=== PATIENT | female | born 1940 | race Caucasian/White ===

== ENCOUNTER 2022-03-01 12:35 | Outpatient (CLI) | payer OTHER, SELFPAY ==
[2022-03-01 21:48] LABS: Chloride* 101 mmol/L (96-114); Potassium* 4.3 mmol/L (3.6-5.1); Sodium* 139 mmol/L (135-149)
[2022-03-01 21:51] LABS: Blood Urea Nitrogen* 23 mg/dL (7-30); Carbon Dioxide* 31 mmol/L (20-32); Cholesterol* 111 mg/dL (90-199); Creatinine* 0.9 mg/dL (0.5-1.5); Estimated Glomerular Filt Rate 64 ml/min
[2022-03-01 21:52] LABS: HDL Cholesterol* 33 mg/dL (>=50); LDL Cholesterol Calculated 53 mg/dL (<100); Triglycerides* 123 mg/dL (40-149)
[2022-03-01 22:00] LABS: Creatinine Urine 125.7 mg/dL
[2022-03-01 22:04] LABS: Microalbumin Creatinine Ratio 0 mg/g (0-30); Microalbumin Urine 1 mg/dL
[2022-03-01 22:07] LABS: Glucose* 121 mg/dL (60-115)
[2022-03-01 22:17] LABS: Thyroid Stimulating Hormone* 0.694 uIU/mL (0.270-4.20)
== END 2022-03-01 12:36 | disposition home or self-care (01) ==
PROVIDERS: PCP Emergency Medicine; Visit Provider Emergency Medicine
DX: C73 Malignant neoplasm of thyroid gland (principal); E11.9 Type 2 diabetes mellitus without complications; I10 Essential (primary) hypertension; E78.5 Hyperlipidemia, unspecified; E03.9 Hypothyroidism, unspecified
CPT/HCPCS: 80048; 80061; 82043; 82570; 84443

== ENCOUNTER 2022-05-27 09:10 | Outpatient (CLI) | payer OTHER, SELFPAY | END 2022-05-27 09:11 | disposition home or self-care (01) | LOC: LKVREF 09:10 | PROVIDERS: PCP Emergency Medicine; Visit Provider Emergency Medicine | DX: C73 Malignant neoplasm of thyroid gland (principal) | CPT/HCPCS: 84443 ==

== ENCOUNTER 2022-08-10 14:12 | Outpatient (CLI) | payer OTHER, SELFPAY | END 2022-08-10 14:13 | disposition home or self-care (01) | PROVIDERS: PCP Emergency Medicine; Visit Provider Emergency Medicine | DX: R19.5 Other fecal abnormalities (principal) | CPT/HCPCS: 83516 ==

== ENCOUNTER 2022-09-13 12:07 | Outpatient (CLI) | payer OTHER, SELFPAY | END 2022-09-13 12:08 | disposition home or self-care (01) | LOC: LKVREF 12:08 | PROVIDERS: PCP Emergency Medicine; Visit Provider Emergency Medicine | DX: K62.5 Hemorrhage of anus and rectum (principal) | CPT/HCPCS: 82728 ==

== ENCOUNTER 2023-07-03 10:20 | Outpatient (CLI) | payer OTHER, SELFPAY | END 2023-07-03 10:21 | disposition home or self-care (01) | PROVIDERS: PCP Emergency Medicine; Referring Provider Emergency Medicine; Visit Provider Emergency Medicine | DX: E11.9 Type 2 diabetes mellitus without complications (principal); E03.9 Hypothyroidism, unspecified; D64.9 Anemia, unspecified; E78.5 Hyperlipidemia, unspecified; I10 Essential (primary) hypertension | CPT/HCPCS: 80053; 80061; 82043; 82570; 82728; 84443 ==

== ENCOUNTER 2024-01-11 09:12 | Outpatient (CLI) | payer OTHER, SELFPAY ==
--- OUTSIDE RECORDS SUMMARY | 2024-01-14 09:23 | XMS_ITS | Clinical Summary ---
Author Organization [facility] Address [address] [place] [address]. [place] [address] Care Team Providers Care Sheeter Helper Name Role Phone Derek Karla Jr Primary Care Provider [phone] Allergies Active Allergy Reactions Criticality Noted Date [...] mouth Active calcium carbonate (OS-GIOVANA 500 MG [place]. [place]) 500 MG tablet Take 1 tablet [...] 78 kg (172 lb) 07/24/2017 10:00 AM INTEGRATION DIRECTOR Height 161.9 cm (5' 3.74) 07/24/2017 10:[address] Body Mass Index 29.77 07/24/2017 10:00 AM INTEGRATION DIRECTOR Plan of Treatment Not on file Care Teams Sheeter Helper Relationship Specialty Start Date End Date Karla Reed [facility] [address] [place] [address] PCP - General Nurse Practitioner 09/25/15
--- OUTSIDE RECORDS SUMMARY | 2024-01-14 09:23 | XMS_ITS | Referral Summary ---
Author Organization [facility] Address [address] [place] [address]. [place] [address] Care Team Providers Care Mobile Designer Name Role Phone Derek Karla Norris Primary Care Provider [phone] Allergies Active Allergy Reactions Criticality Noted Date [...] mouth Active calcium carbonate (OS-GIOVANA 500 MG [place]. [place]) 500 MG tablet Take 1 tablet [...] 78 kg (172 lb) 07/24/2017 10:00 AM MATERIALS ASSOCIATE Height 161.9 cm (5' 3.74) 07/24/2017 10:[address] Body Mass Index 29.77 07/24/2017 10:00 AM MATERIALS ASSOCIATE Plan of Treatment Not on file Care Teams Mobile Designer Relationship Specialty Start Date End Date Karla Reed [facility] [address] [place] [address] PCP - General Nurse Practitioner 09/25/15
--- OUTSIDE RECORDS SUMMARY | 2024-01-14 09:23 | XMS_ITS | Clinical Summary ---
Author Organization [facility] Address [place], [place] [address] Care Team Providers Care Radio Frequency Technician Name Role Phone Rocío Rubio MD Primary Care Provider [phone] Allergies Active Allergy Reactions Criticality Noted Date [...] history exists Influenza for age 65+ 02/25/2024 Advance Directives Documents on File Type Date Recorded Patient Vehicle Service Attendant Expl anation Power of Cleaner Operator 04/28/2017 3:47 PM Healthcare Directive 04/27/2017 12:00 AM * Full Code (Latest Code Status on File) Date Activated Date Inactivated Comments 04/28/2017 12:26 AM 04/29/2017 4:20 PM Question Answer Comments Code Status Discussion: Discussed Care Teams Radio Frequency Technician Relationship Specialty Start Date End Date Rocío Rubio MD [address] [place] [address] PCP - General 04/19/19
--- OUTSIDE RECORDS SUMMARY | 2024-01-14 09:23 | XMS_ITS | Clinical Summary ---
Author Organization [facility] Address [address] [place] [address] Care Team Providers Care Region Manager Name Role Phone Unavailable Primary Care Provider Unavailabl e Source Comments You are receiving this document as you are listed as the primary care provider,follow-up provider, or the patient has been referred to you for consultation.This is in compliance with the Medicare andMedicaid EHR Incentive Program,which states Providers who transition their patient to another setting of careor provider of care or refers their patient to another provider of care shouldprovide summary care record for each transition of care or referral. [facility] Allergies No known active allergies Medications Medication Sig Dispensed Refills Start Date End Date Status spironolactone-hydroch lorothiazide (ALDACTAZIDE) 25-25 MG tablet Take 1 Tablet by mouth daily. 07/11/2022 Active rosuvastatin (CRESTOR) 20 MG tablet Take 1 Tablet (20 mg) by mouth daily. 08/02/2022 Active metoprolol tartrate (LOPRESSOR) 25 MG tablet Take 0.5 Tablets (12.5 mg) by mouth two times a day. 08/02/2022 Active metFORMIN (GLUCOPHAGE) 1000 MG tablet Take 1 Tablet (1,000 mg) by mouth two times a day. 08/02/2022 Active losartan (COZAAR) 100 MG tablet Take 1 Tablet (100 mg) by mouth daily. 08/02/2022 Active Felodipine (PLENDIL) 10 MG tablet Take 1 Tablet (10 mg) by mouth daily. Active aspirin EC 81 MG enteric coated tablet Take 1 Tablet (81 mg) by mouth daily. Active levothyroxine (SYNTHROID) 112 MCG tablet Take 1 Tablet (112 mcg) by mouth daily. 08/11/2022 Active calcium carbonate-vitamin D 600-10 MG-MCG tablet Take 3 Tablets by mouth two times a day. Active Social History Tobacco Use Types Packs/Day Years Used Date Smoking Tobacco: Never Smokeless Tobacco: Never Tobacco Cessation:Counseling Given: Not Answered Alcohol Use Standard Drinks/Week Comments Not Currently 0 (1 standard drink = 0.6 oz pur e alcohol) Sex and Gender Information Value Date Recorded Sex Assigned at Not on file Gender Identity Not on file Sexual Orientation Not on file Last Filed Vital Signs Vital Sign Reading Time Taken Comments Blood Pressure - - Pulse - - Temperature - - Respiratory Rate - - Oxygen Saturation - - Inhaled Oxygen Concentration - - Weight 70.6 kg (155 lb 9.6 oz) 09/29/2022 2:00 P M CDT Height 162.6 cm (5' 4) 09/29/2022 2:00 PM CDT Body Mass Index 26.71 09/29/2022 2:00 PM CDT Plan of Treatment Health Maintenance Due Date Last Done Comments Medicare Welcome Visit 1940 Dexa 2004 COVID-19 Vaccine ( season) 2023 05/12/2022, 03/22/2021, 08/07/2020, Additional history exists Influenza (#1) 2024 05/12/2022, 05/26, 04/06/2020, Additional history exists DTaP/Tdap/Td (2 - Tdap) 12/11/2028 12/11/2018 Zoster/Shingles Completed 03/12/2019, 12/11/2018 Pneumococcal 65+ Yrs Completed 01/14/2020, 08/09/19 17 HepA Aged Out No longer eligi ble based on patient's age to complete this topic HepB Aged Out No longer eligi ble based on patient's age to complete this topic Hib Aged Out No longer eligi ble based on patient's age to complete this topic IPV (Polio) Aged Out No longer eligi ble based on patient's age to complete this topic MCV4 Aged Out No longer eligi ble based on patient's age to complete this topic
== END 2024-01-11 09:13 | disposition home or self-care (01) ==
LOC: NFLDREF 01-14 09:21
PROVIDERS: PCP Emergency Medicine; Referring Provider Emergency Medicine; Visit Provider Emergency Medicine
DX: I95.1 Orthostatic hypotension (principal)
CPT/HCPCS: 87086; 87186

== ENCOUNTER 2024-01-11 09:37 | Emergency (ER) | payer OTHER, SELFPAY ==
[2024-01-11 09:40] VITALS: BP 119/73; PULSE 85; RESP 14; TEMP 35.9; O2SAT 97
[2024-01-11 10:07] VITALS: BP 104/65; BP 78/66; BP 99/57; PULSE 61; PULSE 77; PULSE 84
--- NOTE | 2024-01-11 10:09 | ED.GENADULT ---
HPI - General Adult General Date Seen: 01/11/24 Chief complaint: Unspecified Complaint, Adult Stated complaint: Dehydrated Time Seen by Provider: 01/11/24 09:38 Source: patient Mode of arrival: ambulatory Limitations: no limitations History of Present Illness HPI narrative: Patient is an 83-year-old female with a history of diabetes, coronary artery disease, hypertension presenting to the emergency department for possible dehydration. She has been having chronic fatigue now for october stand. Of time and states she has not been eating or drinking much since October when her went to a detention for hospice care. States she does know she needs to increase her oral intake but has been so busy instructs doubt that she has not been. She also has chronic diarrhea and saw her primary care provider yesterday for that. Had labs done in a was also noted to have low blood pressure and was sent home and told to take lots of fluids which she did. States she is feeling much better today the went back for a blood pressure recheck in was told to come to the emergency department. Patient denies of lightheadedness today. Denies dizziness, chest pain, shortness of breath, weakness, numbness, headache, vision changes, dysuria, constipation. Did have a episode of diarrhea this morning. No other concerns noted. She states overall she feels well. Related Data Home Medications ?Medication ?Instructions ?Recorded ?Confirmed aspirin 81 mg chewable tablet 1 tab PO DAILY 03/01/22 01/11/24 calcium carbonate mg PO DAILY 03/01/22 01/11/24 nitroglycerin 0.4 mg sublingual 0.4 mg sublingual Q5-15M PRN 03/01/22 01/11/24 tablet carvedilol 6.25 mg tablet 6.25 mg PO BID 01/10/24 01/10/24 losartan 100 1 tab PO QDAY 01/10/24 01/11/24 mg-hydrochlorothiazide 25 mg tablet Previous Rx's ?Medication ?Instructions ?Recorded blood sugar diagnostic (True #100 ea 03/01/22 Metrix Glucose Test Strip) felodipine 10 mg tablet,extended 10 mg PO QDAY #90 tabs 07/06/23 release 24 hr levothyroxine 112 mcg tablet 112 mcg PO QDAY #90 tabs 07/06/23 losartan 100 mg tablet 100 mg PO QDAY #90 tabs 07/06/23 metformin 1,000 mg tablet 1,000 mg PO BID #180 tabs 07/06/23 rosuvastatin 20 mg tablet 20 mg PO QDAY #90 tabs 07/06/23 spironolactone 25 1 tab PO DAILY #90 tabs 07/06/23 mg-hydrochlorothiazide 25 mg tablet Allergies Allergy/AdvReac Type Severity Reaction Status Date / Time adhesive Allergy Severe Rash Verified 01/11/24 07:56 latex Allergy Intermediate Rash Verified 01/11/24 07:56 Penicillins Allergy Mild Rash Verified 01/11/24 07:56 Shrimp Flavor Allergy Intermediate Rash Uncoded 01/11/24 07:56 Review of Systems Status of ROS: Reports: 10 or more systems reviewed and unremarkable except as noted in History and below PFSH PFS Medical History Microalbuminuria due to type 2 diabetes mellitus ?E11.29 - Type 2 diabetes mellitus with other diabetic kidney complication (ICD-10) ?R80.9 - Proteinuria, unspecified (ICD-10) Hypotension ?I95.9 - Hypotension, unspecified (ICD-10) Unintentional weight loss ?R63.4 - Abnormal weight loss (ICD-10) Lightheaded ?R42 - Dizziness and giddiness (ICD-10) Hyperplastic colon polyp ?K63.5 - Polyp of colon (ICD-10) Screening mammogram for breast cancer ?Z12.31 - Encounter for screening mammogram for malignant neoplasm of breast (ICD-10) Encounter for preventive care ?Z00.00 - Encounter for general adult medical examination without abnormal findings (ICD-10) BRBPR (bright red blood per rectum) ?K62.5 - Hemorrhage of anus and rectum (ICD-10) Loose stools ?R19.5 - Other fecal abnormalities (ICD-10) Hx of bone density study ?Z92.89 - Personal history of other medical treatment (ICD-10) Breast cancer ?C50.919 - Malignant neoplasm of unspecified site of unspecified female breast (ICD-10) Diabetes mellitus type II, controlled, with no complications ?E11.9 - Type 2 diabetes mellitus without complications (ICD-10) Hypothyroidism ?E03.9 - Hypothyroidism, unspecified (ICD-10) Thyroid cancer ?C73 - Malignant neoplasm of thyroid gland (ICD-10) History of malignant neoplasm of thyroid ?Z85.850 - Personal history of malignant neoplasm of thyroid (ICD-10) History of malignant neoplasm of breast ?Z85.3 - Personal history of malignant neoplasm of breast (ICD-10) Encounter for annual physical exam ?Z00.00 - Encounter for general adult medical examination without abnormal findings (ICD-10) COVID ?U07.1 - COVID-19 (ICD-10) Surgical History Status post insertion of drug eluting coronary artery stent ?Z95.5 - Presence of coronary angioplasty implant and graft (ICD-10) Status post subtotal parathyroidectomy ?E89.2 - Postprocedural hypoparathyroidism (ICD-10) History of tonsillectomy ?Z90.89 - Acquired absence of other organs (ICD-10) History of colonoscopy ?Z98.890 - Other specified postprocedural states (ICD-10) Family History Mother FH: early coronary artery disease Social History Smoking Status: Never smoker How often do you have a drink containing alcohol: monthly or less AUDIT-C Alcohol total score: 1 Non-prescribed substance use: denies use Little interest or pleasure in doing things: not at all Feeling down, depressed, or hopeless: not at all Exam Narrative: Exam Narrative: Const: Well-nourished, Well-developed, in no distress Eyes: PERRL, no conjunctival injection, and symmetrical lids HENT: Atraumatic external nose and ears. Moist mucous membranes. Neck: Symmetric, trachea midline, No thyromegaly. CVS: RRR, No murmurs or gallops. Peripheral pulses 2+ and equal in all extremities RESP: Unlabored respiratory effort. Clear to auscultation bilaterally. GI: Nontender/Nondistended, No rebound or guarding. MSK:Extremities w/o deformity, Normal Active ROM Skin: Warm, Dry. No rashes or lesions. Neuro: Normal Muscle tone, No focal neurological deficits. Psych: Awake, Alert, & Oriented x3. Appropriate mood and affect. Const: Vital Signs, click to edit/add: Vital Signs - 24 hr 01/11/24 09:40 01/11/24 10:07 Temperature 96.7 F L Pulse Rate [Pulse Oximeter] 85 Pulse Rate [orthos tatic lying Pulse Oximeter] 61 Pulse Rate [orthos tatic sitting Puls e Oximeter] 77 Pulse Rate [orthos tatic standing Pul se Oximeter] 84 Respiratory Rate 14 Blood Pressure [Ri ght Upper Arm] 119/73 Blood Pressure [or thostatic lying Ri ght Arm] 104/65 Blood Pressure [or thostatic sitting Right Arm] 99/57 L Blood Pressure [or thostatic standing Right Arm] 78/66 L Pulse Oximetry 97 Oxygen Delivery Me thod Room Air Course Vital Signs Vital signs: Initial Vital Signs Temperature 96.7 F L 01/11/24 09:40 Temperature Source Temporal Artery Scan 01/11/24 09:40 Pulse Rate 85 01/11/24 09:40 Pulse Rhythm Regular 01/11/24 09:40 Respiratory Rate 14 01/11/24 09:40 Blood Pressure 119/73 01/11/24 09:40 Blood Pressure Mean 88 01/11/24 09:40 Blood Pressure Position Sitting 01/11/24 09:40 Pulse Oximetry 97 01/11/24 09:40 Oxygen Delivery Method Room Air 01/11/24 09:40 Vital Signs Temperature 96.7 F L 01/11/24 09:40 Pulse Rate 85 01/11/24 09:40 Respiratory Rate 14 01/11/24 09:40 Blood Pressure 119/73 01/11/24 09:40 Pulse Oximetry 97 01/11/24 09:40 Oxygen Delivery Method Room Air 01/11/24 09:40 Temperature 96.7 F L 01/11/24 09:40 Pulse Rate 61 01/11/24 10:07 Respiratory Rate 14 01/11/24 09:40 Blood Pressure 104/65 01/11/24 10:07 Pulse Oximetry 97 01/11/24 09:40 Oxygen Delivery Method Room Air 01/11/24 09:40 Medications Administered Medications: Discontinued Medications Generic Name Dose Route Start Last Admin Trade Name Freq PRN Reason Stop Dose Admin Lactated Ringer's 1,000 mls @ 1,000 mls/hr 01/11/24 10:07 01/11/24 11:53 Lactated Ringers 1000 Ml IV 01/11/24 11:06 Infused .Q1H ONE Infusion Medical Decision Making MDM Narrative Medical decision making narrative: Patient presents today for concerns of dehydration. I did speak to her primary care provider before the patient was sent over and was informed she did have positive orthostatic hypotension. She has stopped her blood pressure medication. She does states she feels much better today. Will repeat her labs. Does told her creatinine was 1.5 yesterday that is normally about 0.9. Will also recheck lab work. CBC and BMP showed no concerning abnormalities. Initial orthostatic blood pressures were positive. 1 L fluids were given after this repeat orthostatic blood pressures were done. Her blood pressures are now normal she states she is feeling much better. Most likely this was secondary to dehydration and she will be discharged at this time. I informed her on the importance of staying well hydrated. She states she understands. Lab Data Labs: Lab Results 01/11/24 Range/Units 10:29 WBC 10.09 (4.50-11.00) K/uL RBC 4.65 (4.00-5.20) m/uL Hgb 12.7 (12.0-16.0) gm/dL Hct 39.6 (33.0-51.0) % MCV 85 (80-100) fL MCH 27 (26-34) pg MCHC 32 (32-36) gm/dL RDW Coeff of Dia 15.2 (11.5-15.5) % Plt Count 209 (140-440) K/uL Neut % (Auto) 75.3 H (42.0-72.0) % Lymph % (Auto) 15.7 L (20-44) % [place] % (Auto) 6.0 (0.0-11.0) % Eos % (Auto) 2.5 (0.0-7.0) % Baso % (Auto) 0.3 (0.0-3.0) % Neut # (Auto) 7.60 H (1.7-7.0) K/uL Lymph # (Auto) 1.60 (0.90-2.90) K/uL [place] # (Auto) 0.60 (0.00-0.90) K/UL Eos # (Auto) 0.25 (0.00-0.50) K/uL Baso # (Auto) 0.03 (0.00-0.30) K/uL Abs Immat Gran (auto) 0.02 (0.00-0.30) K/uL Imm/Tot Granulo (auto) 0.2 % Sodium 138 (135-149) mmol/L Potassium 4.0 (3.6-5.1) mmol/L Chloride 102 (96-114) mmol/L Carbon Dioxide 23 (20-32) mmol/L Anion Gap 13 (7-15) mEq/L BUN 23 (7-30) mg/dL Creatinine 1.3 (0.5-1.5) mg/dL Estimated GFR 41 ml/min Glucose 119 H (60-115) mg/dL Calcium 10.3 (8.4-10.6) mg/dL Discharge Plan Discharge Clinical Impression: Dehydration, Orthostatic hypotension Patient Disposition: Home, Self-Care Condition: Improved Instructions: Dehydration (DC) Additional Instructions: Make sure to keep herself well hydrated. Between your decreased fluid intake and diarrhea you are at higher risk for dehydration. Return to emergency department for new or worsening symptoms. Prescriptions: No Action aspirin 81 mg tablet,chewable 1 tab PO DAILY nitroglycerin 0.4 mg tablet, sublingual 0.4 mg sublingual Q5-15M PRN calcium carbonate 600 mg calcium (1,500 mg) tablet PO DAILY (DME) True Metrix Glucose Test Strip Strip See Rx Instructions .Route Qty: 100 1RF Rx Instructions: Daily PRN levothyroxine 112 mcg tablet 112 mcg PO QDAY Qty: 90 3RF Rx Instructions: Do not fill levothyroxine 125 felodipine 10 mg tablet extended release 24 hr 10 mg PO QDAY Qty: 90 3RF losartan 100 mg tablet 100 mg PO QDAY Qty: 90 3RF spironolacton-hydrochlorothiaz 25-25 mg tablet 1 tab PO DAILY Qty: 90 3RF rosuvastatin 20 mg tablet 20 mg PO QDAY Qty: 90 3RF metformin 1,000 mg tablet 1,000 mg PO BID Qty: 180 3RF carvedilol 6.25 mg tablet 6.25 mg PO BID Rx Instructions: must administer with a meal/food losartan-hydrochlorothiazide 100-25 mg tablet 1 tab PO QDAY Follow Up/Referrals: Rocío Rubio MD [Primary Care Provider] - Stand Alone Forms: [email or web address] Info Instructions
--- OUTSIDE RECORDS SUMMARY | 2024-01-11 10:15 | XMS_ITS | Clinical Summary ---
Author Organization [facility] Address [place], [place] [address] Care Team Providers Care Tafe Registrar Name Role Phone Rocío Rubio MD Primary Care Provider [phone] Allergies Active Allergy Reactions Criticality Noted Date Comments Penicillin G Benzathin,Procain Rash 06/07 Shellfish Containing Products Rash 2004 Medications Medication Sig Dispensed Refills Start Date End Date Status losartan-hydrochloro thiazide (HYZAAR) 100-25 mg tablet Take 1 tablet by mouth once daily. Active spironolacton-hydroc hlorothiaze, 25-25 mg, (ALDACTAZIDE) tablet Take 1 tablet by mouth once daily. Active felodipine (PLENDIL) 10 mg Extended-Release tablet Take 10 mg by mouth once daily. Active CALCIUM CARBONATE (CALCIUM 600 ORAL) Take 1,800 mg by mouth once daily. Active cyanocobalamin (VITAMIN B-12) 1,000 mcg tablet Take 1,000 mcg by mouth once daily. Active atorvastatin (LIPITOR) 40 mg tabletIndications:NS PAULO (non-ST elevated myocardial infarction) (HC) Take 1 tablet by mouth at bedtime. 30 tablet 2 04/28/2017 Active aspirin chewable 81 mg chewable tabletIndications:NS PAULO (non-ST elevated myocardial infarction) (HC) Take 1 tablet by mouth once daily. 30 tablet 11 04/29/2017 Active nitroglycerin (NITROSTAT) 0.4 mg sublingual tabletIndications:NS PAULO (non-ST elevated myocardial infarction) (HC) Place 1 tablet under the tongue every 5 minutes if needed for Chest Pain (first choice for chest pain). 25 tablet 04/28/2017 Active levothyroxine (SYNTHROID) 112 mcg tablet Take 1 Tablet (112 mcg) by mouth before breakfast. 03/22/2022 Active metFORMIN (GLUCOPHAGE) 500 mg tabletIndications:Ty pe 2 diabetes mellitus with complication, without long-term current use of insulin (HC) Take 1 Tablet (500 mg) by mouth two times daily with meals. Pt reports only takes 500 mg BID. 0 03/22/2022 Active carvediloL (Coreg) 6.25 mg tabletIndications:HT N (hypertension) Take 1 Tablet (6.25 mg) by mouth two times daily with meals. 180 Tablet 3 09/19/2023 Active Active Problems Problem Noted Date Diagnosed Date NSTEMI (non-ST elevated myocardial infarction) 1 06/28/2016 HTN (hypertension) 04/27/2017 Thyroid cancer 04/27/2017 Acquired hypothyroidism 04/27/2017 DM2 (diabetes mellitus, type 2) 04/27/2017 Melanoma in situ 04/27/2017 Peripheral vascular disease 04/27/2017 Chest pain, unspecified 07/27/2011 Overview: Colonoscopy 06/2011 polyp repeat in 5 years Resolved Problems Problem Noted Date Diagnosed Date Resolved Date Chest pain 04/27/2017 04/28/2017 Social History Tobacco Use Types Packs/Day Years Used Date Smoking Tobacco: Never Smokeless Tobacco: Never Alcohol Use Standard Drinks/Week Comments No 0 (1 standard drink = 0.6 oz pur e alcohol) Social Connections Answer Date Recorded Frequency of Communication with Friends and Fami ly Not on file 06/26/2021 Financial Resource Strain Answer Date R ecorded Difficulty of Paying Living Expenses Not on file 06/26/2021 Difficulty of Paying Living Expenses Not on file 06/26/2021 Sex and Gender Information Value Date Recorded Sex Assigned at Not on file Gender Identity Not on file Sexual Orientation Not on file Obstetrics History Last Filed Vital Signs Vital Sign Reading Time Taken Comments Blood Pressure 114/67 03/22/2022 11:00 AM CDT Pulse 65 03/22/2022 11:00 AM CDT Temperature 36.7 ??C (98 ??F) 04/29/2017 7:37 AM CDT Respiratory Rate 16 04/29/2017 7:37 AM CDT Oxygen Saturation 97% 03/22/2022 11: 00 AM CDT Inhaled Oxygen Concentration - - Weight 73.4 kg (161 lb 14.4 oz) 022 11:00 AM CDT Height 162.6 cm (5' 4) 04/02/2020 1:15 PM CDT Body Mass Index 27.79 04/02/2020 1:15 PM CDT Plan of Treatment Health Maintenance Due Date Last Done Comments Pneumococcal series for age 65+ (1 of 2 - PCV) 1945 Tdap 1950 Depression screening for age 12+ 1951 Tetanus booster 1959 Zoster (shingles) series for age 50+ (1 of 2) 1989 DEXA/DXA scan for age 65+ 2004 Medicare Wellness for age 65+ 2004 BMI (ht and wt on same day) for age 18+ 04/02/2021 04/02/2020 COVID-19 vaccine series (2022-24 season) 2023 05/12/2022, 03/22/2021, 08/07/2020, Additional history exists Influenza for age 65+ 02/25/2024 Insurance Payer Benefit Plan / Group Subscriber ID Effective Dates Phone Address Type MEDICARE PART B - HB USE ONLY MEDICARE PART B HB ONLY [id number] 2004-Present ATTN: CLAIMS [address] [place] [address] MEDICARE PART A - HB USE ONLY MEDICARE PART A HB ONLY [id number] 2004-Present ATTN: CLAIMS [address] [place] [address] [employer] GOLD MR [employer] CHOICE PPO MR [id number] 2018-Present [address] [address] [place] [address] Advance Directives Documents on File Type Date Recorded Patient Sulfide Head Operator Expl anation Power of Tenterer 04/28/2017 3:47 PM Healthcare Directive 04/27/2017 12:00 AM * Full Code (Latest Code Status on File) Date Activated Date Inactivated Comments 04/28/2017 12:26 AM 04/29/2017 4:20 PM Question Answer Comments Code Status Discussion: Discussed Care Teams Tafe Registrar Relationship Specialty Start Date End Date Rocío Rubio MD [address] [place] [id number] PCP - General 04/19/19
--- OUTSIDE RECORDS SUMMARY | 2024-01-11 10:16 | XMS_ITS | Referral Summary ---
Author Organization [facility] Address [address] [place] [address]. [place] [address] Care Team Providers Care Undergraduate Intern Name Role Phone Derek Karla Norris Primary Care Provider [phone] Allergies Active Allergy Reactions Criticality Noted Date Comments Penicillins Rash Low 12/22/2017 Shellfish-Derived Products 8 Medications Medication Sig Dispensed Refills Start Date End Date Status Clopidogrel Bisulfate (PLAVIX PO) Take 75 mg by mouth Active aspirin 81 MG tablet Take 81 mg by mouth daily Active METOPROLOL TARTRATE PO Ac tive LOSARTAN POTASSIUM PO Take 100 mg by mouth Active SPIRONOLACTONE PO Take 25 mg by mouth Active felodipine ER (PLENDIL) 10 MG 24 hr tablet Take by mouth daily Active potassium chloride (KLOR-CON) 20 MEQ Packet Take 20 mEq by mouth 2 times daily Active METFORMIN HCL PO Take 1,000 mg by mouth Active ATORVASTATIN CALCIUM PO Take 40 mg by mouth Active calcium carbonate (OS-GIOVANA 500 MG [place]. [place]) 500 MG tablet Take 1 tablet by mouth 2 times daily Active Cyanocobalamin (VITAMIN B 12 PO) Take 1,000 mcg by mouth Active Social History Tobacco Use Types Packs/Day Years Used Date Smoking Tobacco: Never Assessed Sex and Gender Information Value Date Recorded Sex Assigned at Not on file Gender Identity Not on file Sexual Orientation Not on file Last Filed Vital Signs Vital Sign Reading Time Taken Comments Blood Pressure - - Pulse - - Temperature - - Respiratory Rate - - Oxygen Saturation - - Inhaled Oxygen Concentration - - Weight 78 kg (172 lb) 07/24/2017 10:00 AM INSTRUCTOR PRIVATE Height 161.9 cm (5' 3.74) 07/24/2017 10:[address] Body Mass Index 29.77 07/24/2017 10:00 AM INSTRUCTOR PRIVATE Plan of Treatment Not on file Care Teams Undergraduate Intern Relationship Specialty Start Date End Date Karla Reed [facility] [address] [place] [address] PCP - General Nurse Practitioner 09/25/15
--- OUTSIDE RECORDS SUMMARY | 2024-01-11 10:16 | XMS_ITS | Clinical Summary ---
Author Organization [facility] Address [address] [place] [address]. [place] [address] Care Team Providers Care Furnace Room Supervisor Name Role Phone Derek Karla Jr Primary Care Provider [phone] Allergies Active Allergy Reactions Criticality Noted Date [...] mouth Active calcium carbonate (OS-GIOVANA 500 MG [place]. [place]) 500 MG tablet Take 1 tablet [...] 78 kg (172 lb) 07/24/2017 10:00 AM GREASER HELPER Height 161.9 cm (5' 3.74) 07/24/2017 10:[address] Body Mass Index 29.77 07/24/2017 10:00 AM GREASER HELPER Plan of Treatment Not on file Care Teams Furnace Room Supervisor Relationship Specialty Start Date End Date Karla Reed [facility] [address] [place] [address] PCP - General Nurse Practitioner 09/25/15
[2024-01-11] MEDS: LACTATED RINGERS 1000 ML 1,000 ML IV (10:32)
[2024-01-11 10:39] LABS: Basophils Absolute Auto 0.03 K/uL (0.00-0.30); Basophils Percent Auto 0.3 % (0.0-3.0); Eosinophils Absolute Auto 0.25 K/uL (0.00-0.50); Eosinophils Percent Auto 2.5 % (0.0-7.0); Hematocrit 39.6 % (33.0-51.0); Hemoglobin* 12.7 gm/dL (12.0-16.0); Immature Granulocytes Abs Auto 0.02 K/uL (0.00-0.30); Immature Granulocytes Pct Auto 0.2 %; Lymphocytes Percent Auto 15.7 % (20-44); Mean Corpuscular HGB Conc 32 gm/dL (32-36); Mean Corpuscular Hemoglobin 27 pg (26-34); Mean Corpuscular Volume 85 fL (80-100); Neutrophils Percent Auto 75.3 % (42.0-72.0); Platelet Count* 209 K/uL (140-440); RDW Coefficient of Variation % 15.2 % (11.5-15.5); Red Blood Count 4.65 m/uL (4.00-5.20); White Blood Count* 10.09 K/uL (4.50-11.00)
[2024-01-11 10:46] LABS: Slide Review Reflex No
[2024-01-11 10:54] LABS: Chloride* 102 mmol/L (96-114); Sodium* 138 mmol/L (135-149)
[2024-01-11 10:57] LABS: Anion Gap 13 mEq/L (7-15); Blood Urea Nitrogen* 23 mg/dL (7-30); Calcium* 10.3 mg/dL (8.4-10.6); Carbon Dioxide* 23 mmol/L (20-32); Creatinine* 1.3 mg/dL (0.5-1.5); Estimated Glomerular Filt Rate 41 ml/min; Glucose* 119 mg/dL (60-115)
== END 2024-01-11 12:16 | disposition home or self-care (01) ==
PROVIDERS: Emergency Provider Student in an Organized Health Care Education/Training Program; PCP Emergency Medicine
DX: E86.0 Dehydration (principal); I95.1 Orthostatic hypotension
CPT/HCPCS: 36415; 80048; 85025; 87086; 96360; 99283; 99284; J7120

== ENCOUNTER 2024-07-02 08:47 | Outpatient (CLI) | payer OTHER, SELFPAY | END 2024-07-02 08:48 | disposition home or self-care (01) | PROVIDERS: PCP Emergency Medicine; Visit Provider Emergency Medicine | DX: E03.8 Other specified hypothyroidism (principal); E61.1 Iron deficiency; E78.5 Hyperlipidemia, unspecified; I10 Essential (primary) hypertension; G62.9 Polyneuropathy, unspecified; Z13.21 Encounter for screening for nutritional disorder | CPT/HCPCS: 80048; 80061; 82043; 82570; 82607; 82728; 84443 ==

== ENCOUNTER 2024-10-09 14:01 | Outpatient (CLI) | payer OTHER, SELFPAY ==
--- NOTE | 2024-10-09 14:30 | CRLHL7_ITS ---
For Patients: As a result of the Century Cures Act, medical imaging exams and procedure reports are released immediately into your electronic medical record. You may view this report before your referring provider. If you have questions, please contact your health care provider. DXA BONE MINERAL DENSITY STUDY Current height (in): 63.5. Weight (lb): 175. Menopause age: 56. Ethnicity: White. 1. Have you had a previous hip or vertebral fracture? No. 2. Have you had any fractures during your adult life which did not result from significant trauma (e.g., auto accident)? No. 3. Did either of your parents have a hip fracture? No. 4. Do you smoke? No. 5. Have you ever taken Glucocorticoids? No. 6. Do you have rheumatoid arthritis? No. 7. Do you have secondary osteoporosis? No. 8. Do you drink 3 or more alcoholic drinks per day? No. 9. Are you being treated for osteoporosis? No. 10. Have you ever taken any of the following medications: Actonel, Evista, Fosamax, Miacalcin, Reclast, Boniva, Forteo, HRT (i.e. estrogen/hormone therapy), Protelos, Prolia, Vitamin D, Calcium, other ??? please specify. ANSWER: Yes, Vitamin D, B12, and Calcium. 11. Do you have any of the following medical conditions: Anorexia or bulimia, asthma or emphysema, end stage renal disease, hyperparathyroidism, any seizure disorders, cancer, inflammatory bowel diseases, hysterectomy, other ??? please specify. ANSWER: Yes, Cancer (throat cancer). 12. What was your maximum height (inches)? 63.5. 13. Do you perform weight bearing exercise regularly? No. 14. Do you regularly consume dairy products? No. 15. Do you drink caffeinated beverages? Yes. 16. At what age did your period start? 12. 17. Are you premenopausal? No. 18. How many full term pregnancies have you had? 3. 19. Have you ever missed your period for more than 6 months in a row (not including or menopause)? No. TECHNIQUE: Bone mineral density study was performed using the [employer]. FINDINGS: The results of the study expressed as bone mineral density (BMD) are as follows: Lumbar spine L1to L4: BMD: 1.202 g/cm2. T-score: 1.4. Z-score: 4.3. Neck Left: BMD: 0.844 g/cm2. T-score: -0.0. Z-score: 2.5. Right: BMD: 0.840 g/cm2. T-score: -0.1. Z-score: 2.4. Total Left: BMD: 0.849 g/cm2. T-score: -0.8. Z-score: 1.6. Right: BMD: 0.877 g/cm2. T-score: -0.5. Z-score: 1.8. IMPRESSION: Normal bone density. COMPARISON: Compared with scan of 01/30/2020, the bone mineral density has decreased by 2.1 percent at the spine and decreased by 5.7 percent at the hip. Mimi Edmond M.D. Diagnostic Radiologist [email or web address] DW/Dictated by: Mimi Edmond MD @ 10/11/2024 7:29:00 AM (Electronically Signed)
== END 2024-10-09 14:02 | disposition home or self-care (01) ==
PROVIDERS: PCP Emergency Medicine; Visit Provider Emergency Medicine
DX: Z13.820 Encounter for screening for osteoporosis (principal); Z92.89 Personal history of other medical treatment
CPT/HCPCS: 77080

== ENCOUNTER 2024-12-04 08:03 | Outpatient (CLI) | payer OTHER, SELFPAY | END 2024-12-04 08:04 | disposition home or self-care (01) | LOC: NFLDREF 12-05 19:39 | PROVIDERS: PCP Emergency Medicine; Referring Provider Emergency Medicine; Visit Provider Emergency Medicine | DX: E53.8 Deficiency of other specified B group vitamins (principal); E61.1 Iron deficiency; I95.1 Orthostatic hypotension; E03.9 Hypothyroidism, unspecified; I25.10 Atherosclerotic heart disease of native coronary artery without angina pectoris | CPT/HCPCS: 80048; 82607; 84443 ==

== ENCOUNTER 2024-12-10 09:40 | Outpatient (CLI) | payer OTHER, SELFPAY | END 2024-12-10 09:41 | disposition home or self-care (01) | LOC: LKVREF 09:41 | PROVIDERS: PCP Emergency Medicine; Visit Provider Emergency Medicine | DX: E61.1 Iron deficiency (principal) | CPT/HCPCS: 82728 ==

== ENCOUNTER 2024-12-26 10:52 | Emergency (ER) | payer OTHER, SELFPAY ==
--- OUTSIDE RECORDS SUMMARY | 2024-12-26 10:54 | XMS_ITS | Clinical Summary ---
Author Organization [facility] Address [address] [place] [address] Care Team Providers Care Stock Or Delivery Clerk Name Role Phone Unavailable Primary Care Provider [...] for each transition of care or referral. [facility] Allergies No known active allergies Medications spironolactone- hydrochlorothia zide (ALDACTAZIDE) 25-25 MG tablet Take 1 Tablet [...] mcg) by mouth daily. 08/11/2022 Active calcium carbonate-vitam in D 600-10 MG-MCG tablet Take 3 Tablets by mouth two times a day. 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 Gender Identity Not on file Sexual Orientation [...] Comments Medicare Welcome Visit 1940 Dexa 2004 RSV Vaccine (1 - 1-dose 75+ series) 2014 COVID-19 Vaccine ( season) 2024 05/12/2022, 03/22/2021, 08/07/2020, Additional history exists Influenza Vaccine (Season Ended) 2025 05/12/2022, 06/04/2021, 04/06/2020, Additional history exists DTaP/Tdap/Td Vaccine (2 - Tdap) 12/11/2028 12/11/2018 Zoster/Shingles Vaccine Completed 03/12/2019, 12/11 Pneumococcal Vaccine 50+ Yrs Completed 01/14/2020, 08/09/2016 HepA Vaccine Aged Out No longer eligi ble based on patient's age to complete this topic HepB Vaccine Aged Out No longer eligi ble based on patient's age to complete this topic Hib Vaccine Aged Out No longer eligi ble based on patient's age to complete this topic MCV4 Vaccine Aged Out No longer eligi ble based on patient's age to complete this topic Meningococcal B Vaccine Aged Out No l onger eligible based on patient's age to complete this topic Insurance [facility]
--- OUTSIDE RECORDS SUMMARY | 2024-12-26 10:54 | XMS_ITS | Clinical Summary ---
Author Organization [facility] Address [address] [place] [address]. [place] [address] Care Team Providers Care Sorority Mother Name Role Phone Karla Reed Jr Primary Care Provider [phone] Allergies Active Allergy Reactions Criticality Noted Date Comments Penicillins Rash Low 12/22/2017 Shellfish-Derived Products 8 Medications Clopidogrel Bisulfate (PLAVIX PO) Take 75 mg by mouth Active aspirin 81 MG tablet Take 81 mg by mouth daily Active METOPROLOL TARTRATE PO Active LOSARTAN POTASSIUM PO Take 100 mg by [...] mouth Active calcium carbonate (OS-GIOVANA 500 MG IONE. 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 [address] [place] [address] PCP - General Nurse Practitioner 09/25/15
--- OUTSIDE RECORDS SUMMARY | 2024-12-26 10:54 | XMS_ITS | Clinical Summary ---
Author Organization [facility] Address [address] [place] [id number] Care Team Providers Care Emu Farmer Name Role Phone Rocío Rubio MD Primary Care Provider [phone] Allergies Active Allergy Reactions Criticality Noted Date Comments Penicillin G Benzathin,Procain Rash 06/07 Shellfish Containing Products Rash 2004 Medications losartan-hydroc hlorothiazide (HYZAAR) 100-25 mg tablet Take 1 tablet by mouth once daily. Active spironolacton-h ydrochlorothiaz e, 25-25 mg, (ALDACTAZIDE) tablet Take 1 tablet by mouth once daily. Active felodipine (PLENDIL) 10 mg Extended-Releas e tablet Take 10 mg by mouth once daily. Active CALCIUM CARBONATE (CALCIUM 600 ORAL) Take 1,800 mg by mouth once daily. Active cyanocobalamin (VITAMIN B-12) 1,000 mcg tablet Take 1,000 mcg by mouth once daily. Active atorvastatin (LIPITOR) 40 mg tabletIndicatio ns:NSTEMI (non-ST elevated myocardial infarction) (HC) Take 1 tablet by mouth at bedtime. 30 tablet 2 04/28/2017 6:44 PM CDT 04/28/2017 Active aspirin chewable 81 mg chewable tabletIndicatio ns:NSTEMI (non-ST elevated myocardial infarction) (HC) Take 1 tablet by mouth once daily. 30 tablet 11 04/28/2017 6:44 PM CDT 04/29/2017 Active nitroglycerin (NITROSTAT) 0.4 mg sublingual tabletIndicatio ns:NSTEMI (non-ST elevated myocardial infarction) (HC) Place 1 tablet under the tongue every 5 minutes if needed for Chest Pain (first choice for chest pain). 25 tablet 04/28/2017 6:44 PM CDT 04/28/2017 Active levothyroxine (SYNTHROID) 112 mcg tablet Take 1 Tablet (112 mcg) by mouth before breakfast. 03/22/2022 Active metFORMIN (GLUCOPHAGE) 500 mg tabletIndicatio ns:Type 2 diabetes mellitus with complication, without long-term current use of insulin (HC) Take 1 Tablet (500 mg) by mouth two times daily with meals. Pt reports only takes 500 mg BID. 0 03/22/2022 Active carvediloL (COREG) 6.25 mg tabletIndicatio ns:HTN (hypertension) TAKE 1 TABLET TWICE DAILY WITH MEALS 180 Tablet 3 07/18/2024 Active Active Problems Problem Noted Date Diagnosed Date NSTEMI (non-ST elevated myocardial infarction) 1 06/28/2016 HTN (hypertension) 04/27/2017 Thyroid cancer 04/27/2017 Acquired hypothyroidism 04/27/2017 DM2 (diabetes mellitus, type 2) 04/27/2017 Melanoma in situ 04/27/2017 Peripheral vascular disease 04/27/2017 Chest pain, unspecified 07/27/2011 Overview (07/27/2011): Colonoscopy 06/2011 polyp repeat in 5 years Resolved Problems Problem Noted Date Diagnosed Date Resolved Date Chest pain 04/27/2017 04/28/2017 Social History Tobacco Use Types Packs/Day Years Used Date Smoking Tobacco: Never Smokeless Tobacco: Never Alcohol Use Standard Drinks/Week Comments No 0 (1 standard drink = 0.6 oz pur e alcohol) Financial Resource Strain Answer Date R ecorded Difficulty of Paying Living Expenses Not on file 06/26/2021 Difficulty of Paying Living Expenses Not on file 06/26/2021 Comments Unknown Sex and Gender Information Value Date Recorded Sex Assigned at Not on file 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 Gender Identity Not on file Sexual Orientation Not on file Obstetrics History Last Filed Vital Signs Vital Sign Reading Time Taken Comments Blood Pressure 114/67 03/22/2022 11:00 AM CDT Pulse 65 03/22/2022 11:00 AM CDT Temperature 36.7 C (98 F) 04/29/2017 7:37 AM CDT Respiratory Rate 16 04/29/2017 7:37 AM CDT Oxygen Saturation 97% 03/22/2022 11: 00 AM CDT Inhaled Oxygen Concentration - - Weight 73.4 kg (161 lb 14.4 oz) 022 11:00 AM CDT Height 162.6 cm (5' 4) 04/02/2020 1:15 PM CDT Body Mass Index 27.79 04/02/2020 1:15 PM CDT Plan of Treatment Health Maintenance Due Date Last Done Comments Tetanus booster 1950 Depression screening for age 12+ 1951 Pneumococcal series for age 50+ (1 of 2 - PCV) 1958 Zoster (shingles) series for age 50+ (1 of 2) 1989 DEXA/DXA scan for age 65+ 2004 Medicare Wellness for age 65+ 2004 RSV vaccine for adults or (1 - 1-dose 75+ series) 2014 BMI (ht and wt on same day) for age 18+ 04/02/2021 04/02/2020 COVID-19 vaccine series (2023- season) 2024 03/06/2024, 05/12/2022, 03/22/2021, Additional history exists Influenza Vaccine (#1) 2025 Hepatitis B series for 19+ Aged Out N o longer eligible based on patient's age to complete this topic Insurance MEDICARE PART B HB ONLY MEDICARE PART A HB ONLY [employer] CHO[employer] PPO MR Advance Directives Documents on File Type Date Recorded Patient Drug Safety Coordinator Expl anation Power of Hris Administrator 04/28/2017 3:47 PM Healthcare Directive 04/27/2017 12:00 AM * Full Code (Latest Code Status on File) Date Activated Date Inactivated Comments 04/28/2017 12:26 AM 04/29/2017 4:20 PM Question Answer Comments Code Status Discussion: Discussed Care Teams Emu Farmer Relationship Specialty Start Date End Date Rocío Rubio MD [address] [place] [id number] PCP - General 04/19/19
[2024-12-26 10:55] VITALS: BP 124/73; PULSE 68; RESP 18; TEMP 36.3; O2SAT 98; BMI 25.7
--- NOTE | 2024-12-26 11:04 | ED.BACK ---
HPI - Back Pain/Injury General Time Seen by Provider: 11:04 Date Seen: 12/26/24 Chief Complaint: Back Injury/Pain Stated Complaint: lower back pain that goes down her leg Time Seen by Provider: 12/26/24 10:53 Source: patient and RN notes reviewed Mode of arrival: ambulatory Limitations: no limitations History of Present Illness HPI Narrative: This 84yo female is coming into the ED with low back pain starting Monday (today is ). It is radiating into her posterolateral right thigh but not below that. She has baseline peripheral neuropathy with loss of some sensation in her feet but nothing has changed from baseline. She has underlying diabetes, hx of both breast and thyroid cancer. She states baseline she will get some occasional back pain but this is different. She has never had a going to her leg before. No loss of bowel or bladder, no incontinence. Walking is okay, she can feel it but it does not make it worse. Attempting to lay on her right side at night really increases her symptoms, sitting makes her feel worse. No trauma, no fevers or chills. She has tried ibuprofen and Tylenol at home, is not really helping this. Related Data Home Medications ?Medication ?Instructions ?Recorded ?Confirmed aspirin 81 mg chewable tablet 1 tab PO DAILY 03/01/22 12/26/24 calcium carbonate mg PO DAILY 03/01/22 12/10/24 nitroglycerin 0.4 mg sublingual 0.4 mg sublingual Q5-15M PRN 03/01/22 12/26/24 tablet carvedilol 6.25 mg tablet 6.25 mg PO BID 01/10/24 12/26/24 cyanocobalamin (vitamin B-12) 500 1,000 mcg PO QDAY 12/10/24 12/26/24 mcg tablet (B-12 DOTS) Previous Rx's ?Medication ?Instructions ?Recorded blood sugar diagnostic (True #100 ea 03/01/22 Metrix Glucose Test Strip) spironolactone 25 1 tab PO DAILY #90 tabs 05/16/24 mg-hydrochlorothiazide 25 mg tablet losartan 100 mg tablet 100 mg PO QDAY #90 tabs 07/02/24 metformin 1,000 mg tablet 1,000 mg PO BID #180 tabs 07/02/24 rosuvastatin 20 mg tablet 20 mg PO QDAY #90 tabs 07/02/24 levothyroxine 112 mcg tablet 112 mcg PO QDAY #90 tabs 08/19/24 prednisone 20 mg tablet 20 mg PO BID #10 tabs 12/26/24 tramadol 25 mg tablet 25 mg PO QHS PRN pain #7 tabs 12/26/24 Allergies Allergy/AdvReac Type Severity Reaction Status Date / Time adhesive Allergy Severe Rash Verified 12/26/24 11:00 latex Allergy Intermediate Rash Verified 12/26/24 11:00 Penicillins Allergy Mild Rash Verified 12/26/24 11:00 Shrimp Flavor Allergy Intermediate Rash Uncoded 12/10/24 08:50 Review of Systems Narrative: As per HPI. [facility] Medical History B12 deficiency ?E53.8 - Deficiency of other specified B group vitamins (ICD-10) Neuropathy ?G62.9 - Polyneuropathy, unspecified (ICD-10) Iron deficiency ?E61.1 - Iron deficiency (ICD-10) Lactose intolerance ?E73.9 - Lactose intolerance, unspecified (ICD-10) SOB (shortness of breath) ?R06.02 - Shortness of breath (ICD-10) Hearing loss ?H91.90 - Unspecified hearing loss, unspecified ear (ICD-10) Microalbuminuria due to type 2 diabetes mellitus ?E11.29 - Type 2 diabetes mellitus with other diabetic kidney complication (ICD-10) ?R80.9 - Proteinuria, unspecified (ICD-10) Hypotension ?I95.9 - Hypotension, unspecified (ICD-10) Unintentional weight loss ?R63.4 - Abnormal weight loss (ICD-10) Lightheaded ?R42 - Dizziness and giddiness (ICD-10) Hyperplastic colon polyp ?K63.5 - Polyp of colon (ICD-10) Screening mammogram for breast cancer ?Z12.31 - Encounter for screening mammogram for malignant neoplasm of breast (ICD-10) Encounter for preventive care ?Z00.00 - Encounter for general adult medical examination without abnormal findings (ICD-10) BRBPR (bright red blood per rectum) ?K62.5 - Hemorrhage of anus and rectum (ICD-10) Loose stools ?R19.5 - Other fecal abnormalities (ICD-10) Hx of bone density study ?Z92.89 - Personal history of other medical treatment (ICD-10) Breast cancer ?C50.919 - Malignant neoplasm of unspecified site of unspecified female breast (ICD-10) Diabetes mellitus type II, controlled, with no complications ?E11.9 - Type 2 diabetes mellitus without complications (ICD-10) Hypothyroidism ?E03.9 - Hypothyroidism, unspecified (ICD-10) Thyroid cancer ?C73 - Malignant neoplasm of thyroid gland (ICD-10) History of malignant neoplasm of thyroid ?Z85.850 - Personal history of malignant neoplasm of thyroid (ICD-10) History of malignant neoplasm of breast ?Z85.3 - Personal history of malignant neoplasm of breast (ICD-10) Encounter for annual physical exam ?Z00.00 - Encounter for general adult medical examination without abnormal findings (ICD-10) COVID ?U07.1 - COVID-19 (ICD-10) Surgical History Status post insertion of drug eluting coronary artery stent ?Z95.5 - Presence of coronary angioplasty implant and graft (ICD-10) Status post subtotal parathyroidectomy ?E89.2 - Postprocedural hypoparathyroidism (ICD-10) History of tonsillectomy ?Z90.89 - Acquired absence of other organs (ICD-10) History of colonoscopy ?Z98.890 - Other specified postprocedural states (ICD-10) Family History Mother FH: early coronary artery disease Social History Narrative: Smoking Status: Never smoker How often do you have a drink containing alcohol: monthly or less AUDIT-C Alcohol total score: 1 Non-prescribed substance use: denies use Exam Const: Vital Signs, click to edit/add: Vital Signs - 24 hr 12/26/24 10:55 Temperature 97.3 F L Pulse Rate [Right Pulse Oximeter] 68 Respiratory Rate 18 Blood Pressure [Ri ght Upper Arm] 124/73 Pulse Oximetry 98 Oxygen Delivery Me thod Room Air This 84-year-old female is alert, interactive, no apparent distress. Gait is normal, did visualize her walking in the ED apartment. Strength is 5/5 and symmetric throughout both lower extremities. Some decreased sensation of both of her feet but she states she is at baseline. No sensory changes in her thighs. Negative straight leg raising on the right side. No point tenderness over her midline spine or SI joints. She is not tender when I palpate over the greater trochanter or down the outside of the leg, pain does not seem to be consistent with trochanteric bursitis. Skin is visualized in normal, normal peripheral pulses. Documenting provider has reviewed patient's vital signs: yes Course Course ED Course: Patient does have low back pain radiating into the right thigh. There is no pain on palpation of the greater trochanter and thus do not think clinically this is consistent with a trochanteric bursitis. Given her history of both thyroid and breast cancer, age 84, will start with some basic x-rays of her lumbar spine. This certainly could be just a basic radiculopathy in the lumbar spine but would like to visualize to see if there is any bony pathology including but not limited to metastatic disease the spine, compression. Will be discussing pain management and discharge medication plans once we have x-ray readings back. Reevaluation(s) Time of Reevaluation #1: 12:06 Reevaluation #1: Did review with patient her x-ray report. She does have arthritic or degenerative changes in her lumbar spine but there certainly is not any evidence for any destructive lesions or any compression fracture on these imaging films. Will try conservative management with prednisone. Did go over risks and benefits of this. She really has not taken much in the way of pain management in the narcotic category. We did discuss beers criteria in the risk of narcotics an elderly. We will try a low-dose tramadol just to see if we can help her sleep until the prednisone has a chance to work with anti-inflammatory effects. She is to follow up in clinic, did bring up physical therapy but she does seem somewhat in interested at this point. Will have her discuss this further with her primary care at follow-up. Vital Signs Vital signs: Initial Vital Signs Temperature 97.3 F L 12/26/24 10:55 Temperature Source Temporal Artery Scan 12/26/24 10:55 Pulse Rate 68 12/26/24 10:55 Pulse Rhythm Regular 12/26/24 10:55 Pulse Strength 3+ Normal 12/26/24 10:55 Respiratory Rate 18 12/26/24 10:55 Blood Pressure 124/73 12/26/24 10:55 Blood Pressure Mean 90 12/26/24 10:55 Pulse Oximetry 98 12/26/24 10:55 Oxygen Delivery Method Room Air 12/26/24 10:55 Vital Signs Temperature 97.3 F L 12/26/24 10:55 Pulse Rate 68 12/26/24 10:55 Respiratory Rate 18 12/26/24 10:55 Blood Pressure 124/73 12/26/24 10:55 Pulse Oximetry 98 12/26/24 10:55 Oxygen Delivery Method Room Air 12/26/24 10:55 Temperature 97.3 F L 12/26/24 10:55 Pulse Rate 68 12/26/24 10:55 Respiratory Rate 18 12/26/24 10:55 Blood Pressure 124/73 12/26/24 10:55 Pulse Oximetry 98 12/26/24 10:55 Oxygen Delivery Method Room Air 12/26/24 10:55 MDM - Back Pain/Injury Imaging Data LS spine: Attestation: I have reviewed the pertinent imaging results. Radiologist's impression: Patient: NACHO CAICEDO Facility:?[facility] Patient ID:?[id number] Site Patient ID:?[id number]. Site :?[id number] Study:?XRay-Spine Lumbar 2 VIEWS-12/26/2024 11:29:18 AM Ordering Physician:Lorena Michael Final Report: Indication: Low back pain radiating to right thigh Comparison: None available. Technique: AP and lateral views lumbar spine were obtained. Findings: The lumbar vertebral body heights are grossly maintained with minimal anterolisthesis of L4 on L5. No evidence of displaced fracture. Moderate degenerative changes of the intervertebral discs with disc height loss and marginal osteophyte formation worst at the L3-L4 and L4-L5 levels. Moderate to severe facet arthrosis. The soft tissues are unremarkable. Impression: Moderate degenerative changes of the lumbar spine without acute osseous abnormality. Dictated by Pardeep Dugan MD @ 12/26/2024 11:53:52 AM (Electronic Signature) Discharge Plan Discharge Clinical Impression: Acute lumbar radiculopathy Patient Disposition: Home, Self-Care Condition: Stable Instructions: Lumbar Radiculopathy (ED), Lower Back Exercises (ED) Additional Instructions: Take the prednisone as prescribed, do take the prednisone with food to protect your stomach. Use Tylenol 1000 mg 3 times a day baseline for pain. Have written for tramadol to be taken at bedtime to help you sleep. Tramadol is a narcotic, can increase risks of constipation, nausea and vomiting, confusion, falls. Recommend recheck in your clinic next week, please schedule an appointment. Physical therapy is important part of rehabilitating sciatica or lumbar radiculopathy. Can review this with your primary care provider, she can give you a referral. If you have any of the warning signs as listed in the patient Education handouts, please seek re-evaluation. Activity Level: Activity as Tolerated Prescriptions: New prednisone 20 mg tablet 20 mg PO BID Qty: 10 0RF tramadol 25 mg tablet 25 mg PO QHS PRN (Reason: pain) Qty: 7 0RF No Action losartan 100 mg tablet 100 mg PO QDAY Qty: 90 3RF metformin 1,000 mg tablet 1,000 mg PO BID Qty: 180 3RF rosuvastatin 20 mg tablet 20 mg PO QDAY Qty: 90 3RF cyanocobalamin (vitamin B-12) [B-12 DOTS] 500 mcg tablet 1,000 mcg PO QDAY aspirin 81 mg tablet,chewable 1 tab PO DAILY nitroglycerin 0.4 mg tablet, sublingual 0.4 mg sublingual Q5-15M PRN calcium carbonate 600 mg calcium (1,500 mg) tablet PO DAILY (DME) True Metrix Glucose Test Strip Strip See Rx Instructions .Route Qty: 100 1RF Rx Instructions: Daily PRN carvedilol 6.25 mg tablet 6.25 mg PO BID Rx Instructions: must administer with a meal/food spironolacton-hydrochlorothiaz 25-25 mg tablet 1 tab PO DAILY Qty: 90 3RF levothyroxine 112 mcg tablet 112 mcg PO QDAY Qty: 90 2RF Rx Instructions: Do not fill levothyroxine 125 Follow Up/Referrals: Rocío Rubio MD [Primary Care Provider, Family Practice] Stand Alone Forms: [employer] Info Instructions
--- NOTE | 2024-12-26 11:10 | CRLHL7_ITS ---
For Patients: As a result of the Century Cures Act, medical imaging exams and procedure reports are released immediately into your electronic medical record. You may view this report before your referring provider. If you have questions, please contact your health care provider. Indication: Low back pain radiating to right thigh Comparison: None available. Technique: AP and lateral views lumbar spine were obtained. Findings: The lumbar vertebral body heights are grossly maintained with minimal anterolisthesis of L4 on L5. No evidence of displaced fracture. Moderate degenerative changes of the intervertebral discs with disc height loss and marginal osteophyte formation worst at the L3-L4 and L4-L5 levels. Moderate to severe facet arthrosis. The soft tissues are unremarkable. Impression: Moderate degenerative changes of the lumbar spine without acute osseous abnormality. Dictated by Pardeep Dugan MD @ 12/26/2024 11:53:52 AM (Electronically Signed)
== END 2024-12-26 12:22 | disposition home or self-care (01) ==
PROVIDERS: Emergency Provider Family Medicine; PCP Emergency Medicine
DX: M54.16 Radiculopathy, lumbar region (principal)
CPT/HCPCS: 72100; 99283

== ENCOUNTER 2025-02-06 13:50 | Outpatient (CLI) | payer OTHER, SELFPAY | END 2025-02-06 13:51 | disposition home or self-care (01) | PROVIDERS: PCP Physician Assistant Medical; Visit Provider Physician Assistant Medical | DX: D64.9 Anemia, unspecified (principal); D72.829 Elevated white blood cell count, unspecified | CPT/HCPCS: 82728 ==

== ENCOUNTER 2025-02-13 14:44 | Outpatient (CLI) | payer OTHER, SELFPAY ==
--- NOTE | 2025-02-13 15:00 | CRLHL7_ITS ---
For Patients: As a result of the Century Cures Act, medical imaging exams and procedure reports are released immediately into your electronic medical record. You may view this report before your referring provider. If you have questions, please contact your health care provider. INDICATION: Low back pain. Left leg pain. COMPARISON: 12/26/2024. TECHNIQUE: Noncontrast CT lumbar spine. FINDINGS: Degenerative grade 1 anterolisthesis of L4 on L5 measures approximate 5 mm. Otherwise, normal alignment. No fractures. No vertebral body loss of height. No fracture of the visualized lower ribs. No sacral fractures. T12-L1 L1-2: No spinal canal or neural narrowing. L2-3: Disc degeneration. Vacuum disc. Posterior disc bulge. Moderate narrowing of spinal canal. Mild narrowing of the bilateral foramina. Mild facet arthropathy. L3-4: Disc degeneration. Vacuum disc. Combined with ligament flavum facet hypertrophy, there is moderate severe narrowing of spinal canal. Mild right and vocl-uc-yuyxldvu left neural foraminal narrowing. Moderate facet arthropathy. L4-5: Grade 1 anterolisthesis. Disc degeneration and unroofed posterior disc bulge. Vacuum disc. Combined with ligamentum flavum facet hypertrophy, there is moderate severe narrowing of spinal canal. No neural foraminal narrowing. Severe facet arthropathy. L5-S1: No narrowing of spinal canal. No impingement of the traversing S1 nerve roots. No neural foraminal narrowing. Mild facet arthropathy. Degenerative changes of the SI joints. Vascular calcifications. IMPRESSION: 1. Degenerative grade 1 anterolisthesis of L4 on L5. Otherwise normal alignment. No fractures 2. At L2-3, moderate narrowing of the spinal canal 3. At L3-4, moderate to severe narrowing of the spinal canal. Attj-an-utgdafen narrowing of left neural foramina 4. At L4-5, moderate to severe narrowing of the spinal canal. Please note that all CT scans at this facility use dose modulation, iterative reconstruction, and/or weight-based dosing when appropriate to reduce radiation dose to as low as reasonably achievable. Dictated by Real Saleem MD @ 02/15/2025 9:48:42 AM (Electronically Signed)
--- NOTE | 2025-02-13 15:30 | CRLHL7_ITS ---
For Patients: As a result of the Cures Act, medical imaging exams and procedure reports are released immediately into your electronic medical record. You may view this report before your referring provider. If you have questions, please contact your health care provider. INDICATION: Low back pain. Upper leg pain. History of breast, skin and thyroid cancer. TECHNIQUE: CT pelvis without contrast. COMPARISON: CT abdomen and pelvis 01/15/2018. FINDINGS: No acute fracture or dislocation. No suspicious lytic or destructive osseous lesion. Moderate degenerative changes of the bilateral hips. [id number]-[id number] degenerative changes of the visualized lower lumbar spine. No other osseous abnormality. No significant hip effusion. Calcified uterine fibroids. Intrapelvic contents as imaged are otherwise unremarkable. No pathologic lymphadenopathy or free fluid. Muscular and superficial soft tissues of the pelvis unremarkable. IMPRESSION: No acute or suspicious osseous abnormality. Dictated by Bin Mackey MD @ 02/17/2025 11:01:35 AM Please note that all CT scans at this facility use dose modulation, iterative reconstruction, and/or weight-based dosing when appropriate to reduce radiation dose to as low as reasonably achievable. Dictated by: Bin Mackey MD @ 02/17/2025 11:01:54 (Electronically Signed)
== END 2025-02-13 14:45 | disposition home or self-care (01) ==
LOC: CT 14:45
PROVIDERS: PCP Physician Assistant Medical; Visit Provider Physician Assistant Medical
DX: M54.50 Low back pain, unspecified (principal); M51.26 Other intervertebral disc displacement, lumbar region; M79.605 Pain in left leg; N85.8 Other specified noninflammatory disorders of uterus; R93.89 Abnormal findings on diagnostic imaging of other specified body structures
CPT/HCPCS: 72131; 72192